=== PATIENT | female | born 1960 | race African-American/Black ===

== ENCOUNTER 2017-12-17 15:38 | Emergency (ER) | payer SELFPAY ==
[~2017-12-17] VITALS: Ht 167.6 cm; Wt 86.5 kg
[~2017-12-17 15:38] MED LIST: AMLO2.5T2; SULFAMETHOXAZOLE; TYLENOL; VALSARTAN; VIC
[2017-12-17] MEDS ORDERED: SODIUM CHLORIDE 0.9% 1,000 ML IV ONE (18:46)
[2017-12-17 19:20] LABS: BASOPHILS % 0.5 % (0.0-2.0); EOSINOPHILS % 1.2 % (0.0-5.0); HEMATOCRIT. 43.3 % (36.0-48.0); HEMOGLOBIN. 15.2 g/dL (12.0-16.0); LYMPHOCYTES % 60.3 % (20.0-50.0); MEAN CORPUSCULAR HEMOGLOBIN 33.5 pg (28.0-32.0); MEAN CORPUSCULAR VOLUME 95.9 fL (81.0-99.0); MEAN PLATELET VOLUME 7.6 fl (7.4-10.4); PLATELET 204 x1000/uL (130-400); RED BLOOD CELL COUNT 4.52 mill/uL (4.2-5.4); RED CELL DISTRIBUTION WIDTH 12.3 % (11.6-14.6)
[2017-12-17 19:21] LABS: CHLORIDE 102 mEq/L (98-107)
[2017-12-17 19:22] LABS: PROTHROMBIN TIME 10.4 sec (9.4-11.6)
[2017-12-17 21:20] VITALS: BP 110/67
== END 2017-12-17 21:24 | disposition home or self-care (01) ==
LOC: ER 16:58
DX: R05 Cough (principal); R53.1 Weakness; Z88.0 Allergy status to penicillin; Z98.890 Other specified postprocedural states
CPT/HCPCS: 36415; 71045; 80053; 85025; 85610; 87804; 96360; 99285; J7030